=== PATIENT | female | born 2005 | race Caucasian/White ===

== ENCOUNTER 2024-04-22 00:31 | Emergency (ER) | payer OTHER ==
[~2024-04-22] VITALS: Ht 160 cm; Wt 59.0 kg
[2024-04-22 00:38] VITALS: TEMP 98.7
[2024-04-22] MEDS ORDERED: KETOROLAC TROMETHAMINE INJ 30 MG/ML VIAL ONE (02:12)
[2024-04-22] MEDS: KETOROLAC TROMETHAMINE INJ 60 MG/2 ML VIAL IM ONE (02:19)
[2024-04-22 02:30] LABS: PREGNANCY TEST URINE QUAL NEGATIVE (NEGATIVE)
[2024-04-22] MEDS ORDERED: NAPR-1009 PO (03:59)
[2024-04-22 04:47] VITALS: BP 122/82; O2SAT 100
== END 2024-04-22 04:47 | disposition home or self-care (01) ==
LOC: ER 00:34
DX: S80.12XA Contusion of left lower leg, initial encounter (principal); F32.A Depression, unspecified; R10.2 Pelvic and perineal pain; R51.9 Headache, unspecified; Z79.899 Other long term (current) drug therapy; Z60.2 Problems related to living alone; V89.2XXA Person injured in unspecified motor-vehicle accident, traffic, initial encounter; Y93.89 Activity, other specified; Y92.410 Unspecified street and highway as the place of occurrence of the external cause; Y99.8 Other external cause status
CPT/HCPCS: 99285; 72125; 96372; 73590; 71250; 70450; 74176; 84703; J1885